=== PATIENT | female | born 1985 | race Caucasian/White ===

== ENCOUNTER → 2017-06-10 23:10 | Observation (INO) ==
--- NOTE | 2017-06-10 22:15 | OB/GYN Progress Note ---
Date of Encounter: 06/10/17 Time of Encounter: 22:12 - Assessment and Plan (1) 31 weeks gestation of Current Visit: Yes Status: Acute (2) Decreased movement Current Visit: Yes Status: Acute NST reactive. Discharge home with precautions. Qualifiers: Fetus number: single or unspecified fetus Trimester: third trimester Qualified Code(s): O36.8130 - Decreased movements, third trimester, not applicable or unspecified (3) NST (non-stress test) reactive Current Visit: Yes Status: Acute (4) History of pulmonary embolus during Current Visit: Yes Status: Acute Continue Lovenox per primary OBGYN (5) Previous delivery affecting Current Visit: Yes Status: Acute Subjective - Subjective Interval history: 31 year-old presenting at 31 weeks for decreased movement. No LOF or VB. No contractions or other complaints. Her is complicated by history of bilateral PE in previous for which she is currently on Lovenox. She has also had 4 prior deliveries. She receives care with Dr. Jeff at [facility]. Antepartum ROS: no loss of fluid, no vaginal bleeding, no movement normal (decreased movement), no contractions Objective - Exam FHR: category 1 FHR comments: Baseline 145 reactive NST Auscultation: bilateral: normal Abdomen: Present: soft, gravid. Absent: tenderness Uterus: Absent: tenderness
== END | disposition home or self-care (01) ==
LOC: 1NENULAB
PROVIDERS: ADMIT Registered Nurse; ATTEND Registered Nurse